=== PATIENT | female | born 1990 | race Caucasian/White ===

== ENCOUNTER 2018-05-30 17:38 | Emergency (ER) | payer OTHER ==
[~2018-05-30] VITALS: Ht 172.7 cm; Wt 63.5 kg
== END 2018-05-30 19:45 | disposition home or self-care (01) ==
LOC: ED 17:38
DX: R11.2 Nausea with vomiting, unspecified (principal); T43.615A Adverse effect of caffeine, initial encounter; F41.9 Anxiety disorder, unspecified
CPT/HCPCS: 96372; 99283; J2060

== ENCOUNTER 2020-08-09 16:05 | Emergency (ER) | payer OTHER ==
[~2020-08-09] VITALS: Ht 172.7 cm; Wt 59.0 kg
--- OUTSIDE RECORDS SUMMARY | 2020-08-09 16:08 | XMS ---
PreManage Notification: [employer] Lieutenant Events No recent Security Events currently on file [facility] There are no care providers on record at this time. Olesya has no Care Guidelines for this patient. Cecelia VISIT COUNT (12 MO.) 1 NENITA Goodson TOTAL 1 NOTE: Visits indicate total known visits. ED/UCC VISIT TRACKING (12 MO.) 08/09/2020 16:06 NENITA Ceja OR TYPE: Emergency COMPLAINT: - COLD SYMPTOMS INPATIENT VISIT TRACKING (12 MO.) No inpatient visits to display in this time frame [email or web address]
[2020-08-09] MEDS ORDERED: AMPHETAMINE SAL10 MG (16:18)
[2020-08-09] MEDS ORDERED: AVIANE1 EACH (16:19)
[2020-08-09] MEDS ORDERED: DEXTROAMP-AMPHE20 MG (16:19)
[2020-08-09] MEDS ORDERED: VALACYCLOVIR1000 MG (16:19)
[2020-08-09] MEDS ORDERED: DOXYCYCLINE HY100 MG PO (17:16)
[2020-08-09] MEDS ORDERED: PREDNISONE20 MG PO (17:16)
== END 2020-08-09 17:31 | disposition home or self-care (01) ==
LOC: ED 16:05
DX: U07.1 COVID-19 (principal); J12.82 Pneumonia due to coronavirus disease 2019; J45.909 Unspecified asthma, uncomplicated; Z87.891 Personal history of nicotine dependence; Z79.899 Other long term (current) drug therapy
CPT/HCPCS: 71045; 94640; 94664; 99284-25; J7512